=== PATIENT | male | born 1975 | race Caucasian/White ===

== ENCOUNTER → 2020-03-24 | Outpatient (CLI) | payer BC ==
[~2020-03-24] MED LIST: OMEP20CA12 PO
--- NOTE | 2020-03-24 13:01 | Diagnostic Imaging Report ---
INDICATION: Knee pain 3 views were obtained. FINDINGS: There are mild degenerative changes in the right knee. No fracture or dislocation. Soft tissues are unremarkable. IMPRESSION: Mild degenerative changes otherwise unremarkable. Dictated by: Dictated on workstation # [id number]
== END ==
LOC: RAD 12:23
PROVIDERS: ATTEND Nurse Practitioner Family
DX: M17.11 Unilateral primary osteoarthritis, right knee (principal)
CPT/HCPCS: 73562

== ENCOUNTER 2021-09-28 15:06 | Outpatient (CLI) | payer BC | END 2021-09-28 15:25 | LOC: SLEEP 15:06 | PROVIDERS: ATTEND Nurse Practitioner Family | DX: G47.39 Other sleep apnea (principal); I10 Essential (primary) hypertension | CPT/HCPCS: G0399 ==

== ENCOUNTER 2021-10-13 05:27 | Outpatient (CLI) | payer BC ==
[~2021-10-13] VITALS: Ht 182.9 cm; Wt 163.7 kg
[2021-10-13] MEDS ORDERED: PANT40TA52 PO (13:19)
[2021-10-13] MEDS ORDERED: NAPR220C11 PO (13:19)
[2021-10-13] MEDS ORDERED: METO50TA7 PO (13:19)
[2021-10-13] MEDS ORDERED: LISI40TA9 PO (13:19)
== END 2021-10-13 17:04 | disposition home or self-care (01) ==
LOC: PREOP 05:27
PROVIDERS: ATTEND Internal Medicine
DX: Z01.818 Encounter for other preprocedural examination (principal)

== ENCOUNTER 2021-10-20 07:00 | Day surgery (SDC) | payer BC ==
--- NOTE | 2021-10-12 18:32 | HISTORY AND PHYSICAL ---
DATE OF SERVICE: EGD HISTORY AND ADMISSION HISTORY: The patient is a 46-year-old configuration white male referred by Rach Malave, nurse practitioner, working for Dr. Torres for EGD evaluation with reports of dysphagia. The patient reports since around mid July he has had increasing trouble with dysphagia predominantly to solids. General liquids as well. He denies of odynophagia. Denies reflux symptoms, but he does report a lot of throat clearing. At times, he does wake up coughing and choking at night. This has not been reportedly associated with weight loss as he has been significantly overweight for most of his adult life. Peno r his report. He has had no previous problems with heartburn and there have been no recent medication changes. He is taking pantoprazole for some time. He denies melena or bright red blood per rectum. He denies any associated abdominal pain. He is not aware of any family history for GI tract malignancy or Voss esophagus. He has no past history of asthma, but he has had a lot of clear rhinorrhea and postnasal drip. PAST MEDICAL HISTORY: He has history of hypertension with no known history of coronary artery disease and has a history of sleep apnea, recently diagnosed for which she is going to be initiating CPAP therapy later this week. He reports no past surgical history He reports no past surgeries. FAMILY HISTORY: Father of complications of alcoholism at the age of 50. Mother is still living at age 65. He has underlying cancer, but he is not sure what type. He has had one grandfather with a history of throat cancer, he was a smoker. SOCIAL HISTORY: The patient reports no past smoking or drinking history. 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 REVIEW OF SYSTEMS: CONSTITUTIONAL: Denies night sweats, chills, fever, or change in weight. PULMONARY: Denies wheezing or shortness of breath. Does have intermittent coughing mostly at night. CARDIOVASCULAR: Denies chest pain, orthopnea, PND, or pedal edema. GASTROINTESTINAL: As noted in the HPI. PHYSICAL EXAMINATION: GENERAL: Reveals a pleasant overweight white male in no acute distress, weighing 361 pounds. VITAL SIGNS: Initial blood pressure 162/110. At the end of the interview 150/100 with the patient appearing quite anxious about being here. HEENT: Reveals a Mallampati 4 configuration. CHEST: Clear to auscultation. CARDIOVASCULAR: Reveals regular rate and rhythm without murmur, S3 or S4. ABDOMEN: Obese, nontender. No mass or organomegaly noted, although obesity diminishes sensitivity for determining organomegaly. No bruits appreciated. EXTREMITIES: Reveal no cyanosis, clubbing or edema. ASSESSMENT: For further investigation of dysphagia. The patient is being set up for diagnostic EGD with possible dilatation to follow. The patient is also at risk for eosinophilic esophagitis. Due to complaints of chronic rhinorrhea with worsening symptoms, The patient was advised to try a trial of Flonase nasal spray 2 sprays both sides at bedtime with at least 2-week trial before determining efficacy. I thank you for the referral of this pleasant gentleman. Job ID: [id number] DocumentID: [id number] Dictated Date: 10/12/2021 17:08:57 [employer] Mill Supervisor Date: 10/12/2021 18:31:39 Dictated By: COLLETTE KOTHARI MD MTDD
[~2021-10-20] VITALS: Ht 182.9 cm; Wt 163.7 kg
[~2021-10-20 07:00] MED LIST changes: +LISI40TA9 PO; +METO50TA7 PO; +NAPR220C11 PO; +PANT40TA52 PO
[2021-10-20] MEDS ORDERED: LACTATED RINGERS 1,000 ML IV ONE (07:05)
[2021-10-20] MEDS ORDERED: LACTATED RINGERS 1,000 ML IV STA (07:13)
[2021-10-20] MEDS ORDERED: LIDOCAINE JELLY 2% 6 ML SYRINGE MM PRN (07:15)
[2021-10-20] MEDS ORDERED: HURRICAINE EXT TUBE (BENZOCAINE) XX PRN (07:15)
[2021-10-20 07:20] VITALS: BP 146/87
[2021-10-20] MEDS ORDERED: proPOfol 200 MG/20 ML (DIPRIVAN) VIAL IV ONE (07:22)
--- NOTE | 2021-10-20 07:32 | Pre-Op Note & Conscious Sedat ---
Pre-Operative Progress Note H&P Reviewed The H&P was reviewed, patient examined and no changes noted. Date H&P Reviewed: Oct 20, 2021 Time H&P Reviewed: 07:32 Conscious Sedation Pre-Proced ASA Score 2 For ASA 3 and 4: Consider anesthesia and medical clearance. Also, for patients with a history of failed moderate sedation consider anesthesia. Airway Lungs Heart ASA score ASA 1: a normal healthy patient ASA 2: a patient with a mild systemic disease (mid diabetes, controlled hypertension, obesity ASA 3: a patient with a severe systemic disease that limits activity (angina, COPD, prior Myocardial infarction) ASA 4: a patient with an incapacitating disease that is a constant threat to life (CHF, renal failure) ASA 5: a moribund patient not expected to survive 24 hrs. (ruptured aneurysm) ASA 6: a declared brain- patient whose organs are being harvested. For emergent operations, add the letter E after the classification Mallampati Classification Grade 3 Sedation Plan Analgesia, Amnesia, Plan communicated to team members, Discussed options with patient/fam, Discussed risks with patient/fam The patient is an appropriate candidate to undergo the planned procedure, sedation, and anesthesia. The patient immediately re-assessed prior to indication. COLLETTE KOTHARI MD Oct 20, 2021 07:32
[2021-10-20] MEDS ORDERED: MIDAZOLAM 2 MG/2 ML (VERSED) VIAL ONE (07:39)
[2021-10-20 08:00] VITALS: BP 115/63
[2021-10-20 08:10] VITALS: BP 115/63
[2021-10-20 08:40] VITALS: BP 106/54
--- NOTE | 2021-10-20 09:07 | Anesthesia-General Post-Op ---
MAC Patient Condition Mental Status/LOC: Same as Preop Cardiovascular: Satisfactory Nausea/Vomiting: Absent Respiratory: Satisfactory Pain: Controlled Complications: Absent Post Op Complications Complications None Follow Up Care/Instructions Patient Instructions None needed. Anesthesiology Discharge Order Discharge Order Patient is doing well, no complaints, stable vital signs, no apparent adverse anesthesia problems. No complications reported per nursing. GARRETT FINCH CRNA Oct 20, 2021 09:07
--- NOTE | 2021-10-20 13:20 | OPERATIVE REPORT ---
DATE OF SERVICE: EGD REPORT INDICATION FOR PROCEDURE: Dysphagia. DESCRIPTION OF PROCEDURE: The patient was placed in the left lateral decubitus position. The endoscope was inserted in the oral cavity and under direct visualization, the esophagus was intubated. The endoscope was passed down the esophagus through the stomach and second portion of the duodenum. Careful inspection was made as the endoscope was withdrawn. FINDINGS: The most remarkable aspect of this patient's study was the significant fatty hypertrophy and narrowing that this causes in the posterior pharynx. This is likely a strong contributing cause to his dysphagia. The proximal, mid and distal esophagus were unremarkable on gross inspection. Biopsies to evaluate for eosinophilic esophagitis were obtained from the GE junction and mid esophagus. The Z line was distinct. There was no evidence to suggest Voss's change. There is a small sliding hiatal hernia present, again without evidence for erosive esophagitis. Several small fundal polyps were noted in the fundus. The cardia and antrum were unremarkable as was the pylorus, pyloric channel, duodenal bulb and second portion of the duodenum. ASSESSMENT: Most notable on examination was significant fatty hypertrophy of the posterior pharynx leading to significant narrowing likely a major contributing cause of this patient's dysphagia. A small sliding hiatal hernia is noted without evidence for erosive esophagitis, Voss's change and there is no evidence for extrinsic compression of the esophagus. The remainder of EGD evaluation was normal as noted above. I discussed the importance of more careful attention to mastication and slowing down the eating process as well as a strong consideration for medication or potentially surgery for weight loss considering medical comorbidities and severe sleep apnea with risk for obesity hypoventilation syndrome, and its attendant complications. I thank you for the referral of this pleasant gentleman. Job ID: [id number] DocumentID: [id number] Dictated Date: 10/20/2021 08:35:00 Industrial Waste Inspector Date: 10/20/2021 13:19:42 Dictated By: COLLETTE KOTHARI MD [facility]
== END 2021-10-20 08:42 | disposition home or self-care (01) ==
LOC: ENDO 07:00
PROVIDERS: ATTEND Internal Medicine
DX: K20.80 Other esophagitis without bleeding (principal); K29.50 Unspecified chronic gastritis without bleeding; K44.9 Diaphragmatic hernia without obstruction or gangrene; K31.7 Polyp of stomach and duodenum; J39.2 Other diseases of pharynx; E66.01 Morbid (severe) obesity due to excess calories; G47.33 Obstructive sleep apnea (adult) (pediatric); Z79.899 Other long term (current) drug therapy; Z68.42 Body mass index [BMI] 45.0-49.9, adult
CPT/HCPCS: 88305